=== PATIENT | male | born 1960 | race Caucasian/White ===

== ENCOUNTER 2023-03-22 23:45 | Emergency (ER) | payer SELFPAY ==
[~2023-03-22] VITALS: Ht 177.8 cm; Wt 104.3 kg
[2023-03-23] MEDS ORDERED: SODIUM CHLORIDE 0.9% 1000ML 1,000 ML IV ONE
[2023-03-23] MEDS ORDERED: ACETAMINOPHEN 325 MG TAB PO ONE
[2023-03-23] MEDS ORDERED: PIPERACILLIN/TAZOBACTAM 3.375 GM VIAL ONE (00:04)
[2023-03-23 00:08] LABS: BASOPHILS # (AUTO) 0.1 (0.0-0.1); BASOPHILS % 0.5 % (0.0-1.0); EOSINOPHILS # (AUTO) 0.1 (0.0-0.4); EOSINOPHILS % 0.6 % (0.0-6.0); HEMATOCRIT 32.5 % (38.2-49.6); HEMOGLOBIN 10.1 g/dL (14.0-18.0); LYMPHOCYTES % 17.6 % (18.0-39.1); MEAN CORPUSCULAR HEMOGLOBIN 26.6 pg (28-32); MEAN CORPUSCULAR HGB CONC 31.1 g/dL (31-35); MEAN CORPUSCULAR VOLUME 85.5 fL (81-99); MONOCYTES # (AUTO) 0.8 (0.2-0.8); MONOCYTES % 7.4 % (4.4-11.3); NEUTROPHILS # (AUTO) 8.2 (2.1-6.9); NEUTROPHILS % 73.5 % (38.7-80.0); PLATELET COUNT 331 x10e3/uL (140-360); RED CELL DISTRIBUTION WIDTH 15.4 % (11.7-14.4)
[2023-03-23 00:26] LABS: CLARITY,URINE CLEAR (CLEAR); COLOR,URINE YELLOW (YELLOW); KETONES,URINE NEGATIVE (NEGATIVE); LEUKOCYTE ESTERASE ,URINE NEGATIVE (NEGATIVE); NITRITE,URINE NEGATIVE (NEGATIVE); PROTEIN,URINE DIPSTICK TRACE (NEGATIVE); URINE UROBILINOGEN 1 mg/dL (0.2 - 1)
[2023-03-23 00:31] LABS: BACTERIA,URINE FEW /HPF; EPITHELIAL CELLS,URINE RARE /LPF; MUCUS,URINE MODERATE (RARE); RBC,URINE 0-5 /HPF (0-5); WBC,URINE (MAN) 0-5 /HPF (0-5)
[2023-03-23 00:32] LABS: ANION GAP 14.4 mmol/L (8-16); CALCIUM 9.1 mg/dL (8.4-10.2); CREATININE, SERUM 1.05 mg/dL (0.72-1.25); POTASSIUM 3.4 mmol/L (3.5-5.1)
[2023-03-23 00:38] LABS: ALBUMIN/GLOBULIN RATIO 0.7 (0.8-2.0)
[2023-03-23] MEDS ORDERED: KETOROLAC TROME10 MG PO (03:01)
[2023-03-23] MEDS ORDERED: LEVOFLOXACIN250 MG PO (03:01)
[2023-03-23 03:04] VITALS: BP 140/85; PULSE 77; RESP 30; TEMP 98; O2SAT 98
== END 2023-03-23 03:13 | disposition home or self-care (01) ==
LOC: ER 23:50
DX: R50.9 Fever, unspecified (principal); K42.9 Umbilical hernia without obstruction or gangrene; N45.3 Epididymo-orchitis; Z20.822 Contact with and (suspected) exposure to COVID-19; R94.31 Abnormal electrocardiogram [ECG] [EKG]
CPT/HCPCS: 36415; 71045; 76870; 80053; 81001; 83605; 85025; 87040; 93005; 93976; 99283; J2543; J7030; U0002

== ENCOUNTER 2023-04-04 09:21 | Emergency (ER) | payer SELFPAY ==
[~2023-04-04] VITALS: Ht 185.4 cm; Wt 99.8 kg
[~2023-04-04 09:21] MED LIST: KETOROLAC TROME10 MG PO; LEVOFLOXACIN250 MG PO
[2023-04-04] MEDS ORDERED: SODIUM CHLORIDE 0.9% 1000ML 1,000 ML IV ONE (09:45)
[2023-04-04 10:33] LABS: BASOPHILS # (AUTO) 0.1 (0.0-0.1); BASOPHILS % 0.5 % (0.0-1.0); EOSINOPHILS # (AUTO) 0.2 (0.0-0.4); EOSINOPHILS % 2.4 % (0.0-6.0); HEMOGLOBIN 9.6 g/dL (14.0-18.0); LYMPHOCYTES # (AUTO) 1.2 (1.0-3.2); LYMPHOCYTES % 13.4 % (18.0-39.1); MEAN CORPUSCULAR HEMOGLOBIN 25.9 pg (28-32); MEAN CORPUSCULAR VOLUME 83.6 fL (81-99); MONOCYTES % 11.1 % (4.4-11.3); NEUTROPHILS # (AUTO) 6.7 (2.1-6.9); NEUTROPHILS % 72.5 % (38.7-80.0); PLATELET COUNT 395 x10e3/uL (140-360); RED BLOOD COUNT 3.71 x10e6/uL (4.3-5.7); RED CELL DISTRIBUTION WIDTH 15.9 % (11.7-14.4)
[2023-04-04 10:46] LABS: CLARITY,URINE CLEAR (CLEAR); COLOR,URINE YELLOW (YELLOW); KETONES,URINE NEGATIVE (NEGATIVE); LEUKOCYTE ESTERASE ,URINE NEGATIVE (NEGATIVE); NITRITE,URINE NEGATIVE (NEGATIVE); PROTEIN,URINE DIPSTICK TRACE (NEGATIVE); URINE UROBILINOGEN 0.2 mg/dL (0.2 - 1)
[2023-04-04 10:58] LABS: ALBUMIN 2.9 g/dL (3.5-5.0); ALBUMIN/GLOBULIN RATIO 0.6 (0.8-2.0); ANION GAP 17.7 mmol/L (8-16); CALCIUM 8.9 mg/dL (8.4-10.2); CREATININE, SERUM 7.34 mg/dL (0.72-1.25); POTASSIUM 3.7 mmol/L (3.5-5.1)
[2023-04-04 11:07] LABS: BACTERIA,URINE RARE /HPF; EPITHELIAL CELLS,URINE RARE /LPF; RBC,URINE >50 /HPF (0-5); WBC,URINE (MAN) 0-5 /HPF (0-5)
[2023-04-04 13:23] VITALS: O2SAT 99
== END 2023-04-04 15:00 | disposition other institution (70) ==
LOC: ER 09:26
DX: R33.9 Retention of urine, unspecified (principal); R31.0 Gross hematuria; N17.9 Acute kidney failure, unspecified; N28.89 Other specified disorders of kidney and ureter; I10 Essential (primary) hypertension
CPT/HCPCS: 36415; 74176; 80053; 81001; 83690; 85025; 99284; J7030; 51700

== ENCOUNTER 2023-04-20 22:03 | Emergency (ER) | payer SELFPAY ==
[~2023-04-20] VITALS: Ht 185.4 cm; Wt 99.8 kg
[2023-04-20] MEDS ORDERED: LIDOCAINE JELLY 2% 10ML URO-JET TOP STA (23:17)
[2023-04-21 00:17] VITALS: O2SAT 100
== END 2023-04-21 00:19 | disposition home or self-care (01) ==
LOC: ER 22:10
DX: R33.9 Retention of urine, unspecified (principal); R10.30 Lower abdominal pain, unspecified; I10 Essential (primary) hypertension
CPT/HCPCS: 51700; 99282

== ENCOUNTER 2023-05-02 17:43 | Emergency (ER) | payer SELFPAY ==
[~2023-05-02] VITALS: Ht 185.4 cm; Wt 99.8 kg
[2023-05-02] MEDS ORDERED: ONDANSETRON HCL INJ 2MG/ML 2ML 2 MG/ML VIAL IV STA (18:15)
[2023-05-02] MEDS ORDERED: ONDANSETRON HCL INJ 2MG/ML 2ML 2 MG/ML VIAL ONE (18:17)
[2023-05-02 18:23] LABS: BASOPHILS % 0.3 % (0.0-1.0); EOSINOPHILS % 0.3 % (0.0-6.0); HEMOGLOBIN 9.8 g/dL (14.0-18.0); LYMPHOCYTES # (AUTO) 1.1 (1.0-3.2); LYMPHOCYTES % 7.8 % (18.0-39.1); MEAN CORPUSCULAR HEMOGLOBIN 27.2 pg (28-32); MEAN CORPUSCULAR HGB CONC 31.6 g/dL (31-35); MEAN CORPUSCULAR VOLUME 86.1 fL (81-99); MONOCYTES # (AUTO) 0.7 (0.2-0.8); NEUTROPHILS # (AUTO) 11.7 (2.1-6.9); NEUTROPHILS % 86.3 % (38.7-80.0); PLATELET COUNT 296 x10e3/uL (140-360); RED CELL DISTRIBUTION WIDTH 17.6 % (11.7-14.4)
[2023-05-02] MEDS ORDERED: SODIUM CHLORIDE 0.9% 1000ML 1,000 ML ONE (18:29)
[2023-05-02 18:35] LABS: ALBUMIN 3.6 g/dL (3.5-5.0); ALBUMIN/GLOBULIN RATIO 0.8 (0.8-2.0); ANION GAP 15.6 mmol/L (8-16); CALCIUM 9.2 mg/dL (8.4-10.2); CREATININE, SERUM 1.3 mg/dL (0.72-1.25); POTASSIUM 3.6 mmol/L (3.5-5.1)
[2023-05-02] MEDS ORDERED: CIPRO500 MG PO (20:18)
[2023-05-02 20:28] VITALS: BP 143/86; PULSE 94; RESP 16; TEMP 98.8; O2SAT 100
[2023-05-02 20:29] LABS: AMPHETAMINES SCREEN,URINE NEGATIVE (NEGATIVE); BENZODIAZEPINES SCREEN,URINE NEGATIVE (NEGATIVE); PHENCYCLIDINE SCREEN,URINE NEGATIVE (NEGATIVE)
== END 2023-05-02 20:27 | disposition home or self-care (01) ==
LOC: ER 17:58
DX: R42 Dizziness and giddiness (principal); C79.51 Secondary malignant neoplasm of bone; R33.9 Retention of urine, unspecified; I10 Essential (primary) hypertension; R94.31 Abnormal electrocardiogram [ECG] [EKG]
CPT/HCPCS: 36415; 51702; 70450; 71045; 80053; 80307; 82550; 83690; 83880; 84484; 85025; 93005; 99284; J2405; J7030

== ENCOUNTER 2024-11-30 12:23 | Emergency (ER) | payer OTHER ==
[~2024-11-30] VITALS: Ht 185.4 cm; Wt 99.8 kg
[~2024-11-30 12:23] MED LIST changes: +BACTRIM DS TAB1 EACH PO; +CIPRO500 MG PO; +LEVOFLOXACIN750 MG PO
[2024-11-30 12:30] VITALS: TEMP 97.4
[2024-11-30] MEDS ORDERED: PROCAINAMIDE HCL INJ 100 MG/ML 10 ML VIAL ONE (12:40)
[2024-11-30] MEDS ORDERED: SODIUM CHLORIDE 0.9% 1000ML 1,000 ML ONE (12:41)
[2024-11-30 12:58] LABS: INR 0.93
[2024-11-30 12:59] LABS: PARTIAL THROMBOPLASTIN TIME 28.4 seconds (23.8-35.5)
[2024-11-30 13:03] LABS: ABG PCO2 37 mmHg (35-45); ABG PH 7.38 (7.35-7.45); ABG PO2 80 mmHg (80-105)
[2024-11-30 13:04] LABS: ABG HCO3 22 mmol/L (22-26); ABG TCO2 23
[2024-11-30 13:05] LABS: ALBUMIN 3.8 g/dL (3.5-5.0); ANION GAP 16.8 mmol/L (8-16); BILIRUBIN,TOTAL 0.9 mg/dL (0.2-1.2); CALCIUM 9.2 mg/dL (8.4-10.2); CREATININE, SERUM 1.39 mg/dL (0.72-1.25); POTASSIUM 3.8 mmol/L (3.5-5.1); TOTAL PROTEIN 7.7 g/dL (6.5-8.1)
[2024-11-30 13:10] LABS: BASOPHILS # (AUTO) 0.1 (0.0-0.1); BASOPHILS % 0.8 % (0.0-1.0); EOSINOPHILS # (AUTO) 0.1 (0.0-0.4); EOSINOPHILS % 1.5 % (0.0-6.0); HEMATOCRIT 53.9 % (38.2-49.6); HEMOGLOBIN 18.4 g/dL (14.0-18.0); LYMPHOCYTES # (AUTO) 1.8 (1.0-3.2); LYMPHOCYTES % 21.8 % (18.0-39.1); MEAN CORPUSCULAR HEMOGLOBIN 31.5 pg (28-32); MEAN CORPUSCULAR HGB CONC 34.1 g/dL (31-35); MEAN CORPUSCULAR VOLUME 92.1 fL (81-99); MONOCYTES # (AUTO) 0.5 (0.2-0.8); MONOCYTES % 5.5 % (4.4-11.3); NEUTROPHILS # (AUTO) 5.9 (2.1-6.9); NEUTROPHILS % 70.2 % (38.7-80.0); PLATELET COUNT 262 x10e3/uL (140-360); RED BLOOD COUNT 5.85 x10e6/uL (4.3-5.7); RED CELL DISTRIBUTION WIDTH 13.7 % (11.7-14.4); WHITE BLOOD COUNT 8.43 x10e3/uL (4.8-10.8)
[2024-11-30 13:11] LABS: TROPONIN I 0.106 ng/mL (0-0.300)
[2024-11-30] MEDS: SODIUM CHLORIDE 0.9% IV STA (13:12)
[2024-11-30] MEDS: PROCAINAMIDE HCL IV STA (13:12)
[2024-11-30] MEDS ORDERED: SODIUM CHLORIDE 0.9% 1000ML 1,000 ML IV SCH (13:45)
[2024-11-30] MEDS: LACTATED RINGER'S 1,000 ML IV ONE (14:01)
[2024-11-30] MEDS: METOPROLOL TARTRATE INJ 1 MG/ML VIAL IV ONE (14:33)
[2024-11-30 14:45] VITALS: PULSE 92; RESP 20
[2024-11-30] MEDS ORDERED: METOPROLOL TART25 MG PO (14:59)
[2024-11-30 15:29] VITALS: BP 141/88; PULSE 88; RESP 17; TEMP 98.4; O2SAT 100
== END 2024-11-30 15:31 | disposition home or self-care (01) ==
LOC: ER 12:36
DX: R42 Dizziness and giddiness (principal); I47.10 Supraventricular tachycardia, unspecified; I10 Essential (primary) hypertension; R94.31 Abnormal electrocardiogram [ECG] [EKG]; Z85.53 Personal history of malignant neoplasm of renal pelvis
CPT/HCPCS: 36415; 36600; 71045; 80053; 82550; 82805; 83735; 84484; 85025; 85610; 85730; 93005; 99284; J2690 ×2; J7030; J7121